=== PATIENT | male | born 1980 | race Caucasian/White ===

== ENCOUNTER 2017-10-27 15:22 | Emergency (ER) | payer SELFPAY ==
[~2017-10-27] VITALS: Ht 170.2 cm; Wt 68.0 kg
[2017-10-27 15:26] VITALS: BP 145/96
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
--- NOTE | 2017-10-27 15:39 | NUR ---
Odin pacheco in [facility] - 10/27/17 at 1539 by [email or web address] X RAY AT BEDSIDE
--- NOTE | 2017-10-27 15:39 | NUR ---
XRAY AT BEDSIDE
--- NOTE | 2017-10-27 15:45 | NUR ---
Patient being evaluated by DR Johns at bedside.
[2017-10-27] MEDS ORDERED: MORPHINE SULFATE 2 MG/ML SYR IM ONE (15:50)
[2017-10-27] MEDS ORDERED: KETOROLAC 60 MG/2 ML VIAL IM ONE (15:50)
[2017-10-27 17:02] VITALS: BP 150/100
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
== END 2017-10-27 17:02 | disposition home or self-care (01) ==
LOC: MED 15:22
DX: S93.602A Unspecified sprain of left foot, initial encounter (principal); G47.62 Sleep related leg cramps; X58.XXXA Exposure to other specified factors, initial encounter; Y93.89 Activity, other specified; Y92.89 Other specified places as the place of occurrence of the external cause; Y99.8 Other external cause status
CPT/HCPCS: 29515; 73630; 96372; 99284; J1885; J2270